=== PATIENT | female | born 1985 | race Caucasian/White ===

== ENCOUNTER → 2018-11-07 | Outpatient (CLI) | payer BC ==
[~2018-11-07] MED LIST: CEPH500C PO; METO-354 PO; OMEP-10 PO; OXYC-12 PO; PREN1TAB39 PO
--- NOTE | 2018-11-07 09:52 | Diagnostic Imaging Report ---
INDICATION: Fall with left elbow pain AP, oblique, and lateral views of the left elbow are obtained. There is elevation of the posterior fat pad compatible with a hemarthrosis. A definite fracture is not visualized but given the hemarthrosis, the possibility of an occult fracture cannot be excluded. IMPRESSION: Elevation of posterior fat pad compatible with hemarthrosis or joint effusion. No definite fracture seen but the presence of the elevated posterior fat pad raises the possibility of an occult fracture. Would recommend followup imaging in 7-10 days. Dictated by: Dictated on workstation # [id number]
== END ==
LOC: RAD 08:47
PROVIDERS: ATTEND Nurse Practitioner Family
DX: M25.822 Other specified joint disorders, left elbow (principal); M25.522 Pain in left elbow; W19.XXXA Unspecified fall, initial encounter
CPT/HCPCS: 73080

== ENCOUNTER 2018-11-18 04:25 | Emergency (ER) | payer BC ==
[~2018-11-18] VITALS: Ht 162.6 cm; Wt 60.8 kg
[2018-11-18] MEDS ORDERED: FAMOTIDINE 20 MG (PEPCID) TABLET PO STA (04:38)
[2018-11-18] MEDS ORDERED: ANTACID SUSP 30 ML UDC (MYLANTA) PO ONE (04:45)
[2018-11-18] MEDS ORDERED: LIDOCAINE 2% VISCOUS 15 ML UDC PO ONE (04:45)
--- NOTE | 2018-11-18 04:45 | ED Abdominal Pain ---
General Chief Complaint: Abdominal/GI Problems Stated Complaint: ABD PAIN Source of Information: Patient Exam Limitations: No Limitations (ROBBIE ECHOLS) History of Present Illness Date Seen by Provider: Nov 18, 2018 Time Seen by Provider: 04:30 Initial Comments Patient presents to ER by private conveyance with chief complaint that about 3: 00 this morning she was woken with some epigastric pain slowly radiated down towards her umbilicus. She's had no fevers chills she's had some semi-nausea with no vomiting. Had a bowel movement yesterday was normal formed. No diarrhea. No dysuria. She says she's having some pain and achiness in her back as well. She has no history of trauma, abdominal surgeries or medical history. No history of kidney stones. She denies a history of GERD or peptic ulcers. She has not taken any pain medicines, antipyretics or antacids. (ROBBIE ECHOLS) Allergies and Home Medications Allergies Uncoded Allergies: NKDA (Allergy, Unknown, 11/18/18) Home Medications Cephalexin Monohydrate 500 Mg Capsule, 1 EACH PO TID, (Reported) Metoclopramide Hcl 10 Mg Tab, 1 EACH PO QID, (Reported) Omeprazole 20 Mg Capsule.dr, 20 MG PO DAILY, (Reported) Omeprazole 20 Mg Capsule.dr, 20 MG PO DAILY Prescribed by: DENNIS COLIN on 11/18/18 0803 Oxycodone Hcl/Acetaminophen 1 Each Tablet, 1-2 EACH PO Q4-6HR PRN, (Reported) Vits W-Ca,Fe,Fa(<1MG) 1 Each Tablet, 1 EACH PO DAILY, (Reported) Patient Home Medication List Home Medication List Reviewed: Yes (ROBBIE ECHOLS) Review of Systems Review of Systems Constitutional: No chills, No diaphoresis, No fever, No malaise EENTM: No Blurred Vision, No Double Vision Respiratory: Denies Cough, Denies Shortness of Air Cardiovascular: Denies Chest Pain, Denies Edema, Denies Lightheadedness Gastrointestinal: See HPI; Denies Abdomen Distended; Abdominal Pain; Denies Constipated, Denies Diarrhea; Nausea; Denies Poor Appetite, Denies Poor Fluid Intake, Denies Vomiting Genitourinary: Denies Burning, Denies Discharge Musculoskeletal: see HPI, back pain; No joint pain Psychiatric/Neurological: Denies Anxiety, Denies Depressed (ROBBIE ECHOLS) Past [facility]ww[facility]-Lqhnm[facility] Hx Patient Social History Recent Foreign Travel: No Contact w/Someone Who Travel: No (ROBBIE ECHOLS) Past Medical History Reproductive Disorders: No (ROBBIE ECHOLS) Physical Exam Vital Signs Vital Signs - First Documented 11/18/18 04:36 Temp 97.0 Pulse 57 Resp 20 B/P (MAP) 105/60 (75) Pulse Ox 100 O2 Delivery Room Air (DENNIS NOEL MD) Vital Signs Capillary Refill : (ROBBIE ECHOLS) Height/Weight/BMI Height: '" Weight: lbs. oz. kg; BMI Method: General Appearance: WD/WN, no apparent distress HEENT: PERRL/EOMI, normal ENT inspection, pharynx normal Neck: non-tender, full range of motion, supple, normal inspection Respiratory: lungs clear, normal breath sounds, no respiratory distress, no accessory muscle use Cardiovascular: normal peripheral pulses, regular rate, rhythm Peripheral Pulses: 2+ Radial Pulses (R), 2+ Radial Pulses (L) Gastrointestinal: normal bowel sounds (active), non tender, soft, no organomegaly, other (negative for Harding's sign, McBurney's point tenderness, Rovsing sign or psoas signs or any other mesenteric signs.) Extremities: normal range of motion, normal capillary refill Neurologic/Psychiatric: alert, normal mood/affect, oriented x 3 Skin: normal color, warm/dry (ROBBIE ECHOLS) Progress/Results/Core Measures Results/Orders Lab Results Laboratory Tests Test 11/18/18 04:48 11/18/18 05:07 Range/Units Urine Color YELLOW Urine Clarity CLEAR Urine pH 8 5-9 Urine Specific [place] 1.010 L 1.016-1.022 Urine Protein NEGATIVE NEGATIVE Urine Glucose (UA) NEGATIVE NEGATIVE Urine Ketones NEGATIVE NEGATIVE Urine Nitrite NEGATIVE NEGATIVE Urine Bilirubin NEGATIVE NEGATIVE Urine Urobilinogen 1 NORMAL MG/DL Urine Leukocyte Esterase 1+ H NEGATIVE Urine RBC (Auto) NEGATIVE NEGATIVE Urine RBC NONE /HPF Urine WBC RARE /HPF Urine Squamous Epithelial Cells 10-25 H /HPF Urine Crystals NONE /LPF Urine Bacteria TRACE /HPF Urine Casts NONE /LPF Urine Mucus SMALL H /LPF Urine Culture Indicated NO White Blood Count 8.0 4.3-11.0 10^3/uL Red Blood Count 4.09 L 4.35-5.85 10^6/uL Hemoglobin 12.7 11.5-16.0 G/DL Hematocrit 38 35-52 % Mean Corpuscular Volume 93 80-99 FL Mean Corpuscular Hemoglobin 31 25-34 PG Mean Corpuscular Hemoglobin Concent 33 32-36 G/DL Red Cell Distribution Width 12.4 10.0-14.5 % Platelet Count 140 130-400 10^3/uL Mean Platelet Volume 10.3 7.4-10.4 FL Neutrophils (%) (Auto) 89 H 42-75 % Lymphocytes (%) (Auto) 5 L 12-44 % Monocytes (%) (Auto) 6 0-12 % Eosinophils (%) (Auto) 0 0-10 % Basophils (%) (Auto) 0 0-10 % Neutrophils # (Auto) 7.1 1.8-7.8 X 10^3 Lymphocytes # (Auto) 0.4 L 1.0-4.0 X 10^3 Monocytes # (Auto) 0.5 0.0-1.0 X 10^3 Eosinophils # (Auto) 0.0 0.0-0.3 10^3/uL Basophils # (Auto) 0.0 0.0-0.1 10^3/uL Sodium Level 140 135-145 MMOL/L Potassium Level 3.9 3.6-5.0 MMOL/L Chloride Level 106 98-107 MMOL/L Carbon Dioxide Level 26 21-32 MMOL/L Anion Gap 8 5-14 MMOL/L Blood Urea Nitrogen 16 7-18 MG/DL Creatinine 0.86 0.60-1.30 MG/DL Estimat Glomerular Filtration Rate > 60 BUN/Creatinine Ratio 19 Glucose Level 111 H 70-105 MG/DL Calcium Level 9.4 8.5-10.1 MG/DL Corrected Calcium 9.2 8.5-10.1 MG/DL Total Bilirubin 1.1 H 0.1-1.0 MG/DL Aspartate Amino Transf (AST/SGOT) 83 H 5-34 U/L Alanine Aminotransferase (ALT/SGPT) 55 0-55 U/L Alkaline Phosphatase 48 40-136 U/L C-Reactive Protein High Sensitivity 0.03 0.00-0.50 MG/DL Total Protein 6.8 6.4-8.2 GM/DL Albumin 4.3 3.2-4.5 GM/DL Lipase 28 8-78 U/L (DENNIS NOEL MD) Medications Given in ED Current Medications Medications Dose Ordered Sig/Mike Route Start Time Stop Time Status Last Admin Dose Admin Al Hydrox/Mg Hydrox/Simethicone 30 ml ONCE ONCE PO 11/18/18 04:45 11/18/18 04:46 DC 11/18/18 04:48 30 ML Famotidine 20 mg ONCE ONCE IVP 11/18/18 06:00 11/18/18 06:01 DC 11/18/18 06:10 20 MG Fentanyl Citrate 50 mcg ONCE ONCE IVP 11/18/18 06:00 11/18/18 06:01 DC 11/18/18 05:58 50 MCG Iohexol 100 ml ONCE ONCE IV 11/18/18 06:45 11/18/18 07:21 DC 11/18/18 06:39 100 ML Ketorolac Tromethamine 30 mg ONCE ONCE IM 11/18/18 05:15 11/18/18 05:16 DC 11/18/18 05:17 30 MG Lidocaine HCl 15 ml ONCE ONCE PO 11/18/18 04:45 11/18/18 04:46 DC 11/18/18 04:48 15 ML Ondansetron HCl 4 mg ONCE ONCE PO 11/18/18 05:00 11/18/18 05:01 DC 11/18/18 05:00 4 MG Sodium Chloride 80 ml ONCE ONCE IV 11/18/18 06:45 11/18/18 07:21 DC 11/18/18 06:40 80 ML (DENNIS NOEL MD) Vital Signs/I&O 11/18/18 04:36 Temp 97.0 Pulse 57 Resp 20 B/P (MAP) 105/60 (75) Pulse Ox 100 O2 Delivery Room Air (DENNIS NOEL MD) Progress Progress Note #1: Time: 04:43 Progress Note Nonacute, nonsurgical belly and well-appearing adult. Possible gastroenteritis, gastritis or colitis. We have asked her for a urinalysis however she says she went to the bathroom in the waiting room prior to coming in. We'll trial a GI cocktail. Aseptic vital signs with a heart rate in the 60s, oxygen saturation on 100% on room air and a blood pressure of 105/60. A nontender belly and no mesenteric signs with aseptic vital signs. Consider offering to check basic labs to include a lipase. Offered Toradol and Zofran. Progress Note #2: Time: 05:50 Progress Note We gave the patient a GI cocktail she said it started to help and then she gets very nauseated and vomited it up. We will establish an IV site gave her 30 mg of Toradol which she said was helping her pain she is even starting to fall asleep. Her labs were reviewed with her and they are very unremarkable. However she said her pain started coming back with a vengeance and rated it as an 8 or 9 out of 10 in her epigastric region radiating towards her back. She still does not have a Harding sign or any costovertebral angle tenderness to percussion. A CT with contrast has been ordered. It may not show us a kidney stone but this does not seem to be her symptomology. Lipase is negative. We will see what the results of the CT scan are. 50 g of fentanyl have been ordered IV. (ROBBIE ECHOLS) Progress Note : Time: 07:59 Progress Note Care of this patient was assumed from Dr. Echols. CT scan was reviewed and did not reveal an etiology for her pain. Patient was reexamined and found to have a minimally tender left upper quadrant. Exam was otherwise unremarkable. (DENNIS NOEL MD) Diagnostic Imaging Diagonstic Imaging: CT (with contrast) Plain Films/CT/US/NM/MRI: abdomen, pelvis Reviewed: Reviewed by Me (ROBBIE ECHOLS) Comments CT abdomen and pelvis viewed by me and report reviewed. See report below: NAME: MOHAN MARCUM [facility] REC#: [id number] PT STATUS: REG ER : 1985 PHYSICIAN: ROBBIE ECHOLS MD ADMIT DATE: 11/18/18/ER Draft Date of Exam:11/18/18 CT ABDOMEN/PELVIS W PROCEDURE: CT abdomen and pelvis with contrast. TECHNIQUE: Multiple contiguous axial images were obtained through the abdomen and pelvis after administration of intravenous contrast. INDICATION: Pain. No priors. FINDINGS: The lung bases are clear. There is some periportal edema in the liver with patency of the portal veins and no bile duct dilatation. This is a nonspecific finding and can be seen idiopathically as well as in the setting of hepatitis; correlate with relevant studies. The pancreas appeared unremarkable. The adrenals and spleen negative. The kidneys are unobstructed. There are no findings of appendicitis or diverticulitis. There is an IUD device within the uterus eleazar-flexed. Urinary bladder and adnexa unremarkable. There is no ascites, abscess, hematoma or other fluid collection. There is no pneumatosis or free gas. IMPRESSION: Intrahepatic but nonspecific periportal edema, the abdominal pelvic CT was otherwise unremarkable and showed no obstructive features. Focal inflammatory process, fluid collection, perforation or other significant findings. Dictated on workstation # [id number] Dict: 11/18/18 0717 Trans: 11/18/18 0730 CHI [id number] Interpreted by: DEANDRE TORIBIO (DENNIS NOEL MD) Transfer of Care Time: 06:01 Care transferred to: Dr. Colin (ROBBIE ECHOLS) Departure Impression Primary Impression: Upper abdominal pain Additional Impression: Nausea and vomiting Qualified Codes: R11.2 - Nausea with vomiting, unspecified Disposition: HOME, SELF-CARE Condition: Improved Departure-Patient Inst. Decision time for Depature: 08:00 (DENNIS NOEL MD) Referrals: ANNA CULVER MD (PCP/Family) Primary Care Physician Patient Instructions: Acute Abdomen (Belly Pain), Adult (DC) Add. Discharge Instructions: Start with a clear liquid diet and gradually advance your diet with small quantities of bland food as tolerated. Use an antacid medication such as omeprazole or Pepcid (famotidine) daily for at least the next 2 weeks. Follow-up with your primary care provider within the next 1-2 weeks. If you're still having symptoms, further evaluation may be warranted with endoscopy and/ or ultrasound. Return to emergency room if you are having significant worsening of symptoms. Avoid the following: Eating large meals, eating close to bedtime, caffeine, carbonation, chocolate, citrus fruits and juices, tomato products, alcohol, mints, fatty or greasy foods, spicy foods, NSAID medications such as ibuprofen or naproxen, or anything else you know irritates your stomach. All discharge instructions reviewed with patient and/or family. Voiced understanding. Scripts Omeprazole (Omeprazole) 20 Mg Capsule. 20 MG PO DAILY, #30 CAP Prov: DENNIS NOEL MD 11/18/18 ROBBIE ECHOLS Nov 18, 2018 04:45 DENNIS NOEL MD Nov 18, 2018 07:43
[2018-11-18] MEDS ORDERED: ONDANSETRON 4 MG (ZOFRAN) ORAL DISSOLVE TAB ONE (04:49)
[2018-11-18 04:56] LABS: BILIRUBIN,URINE NEGATIVE (NEGATIVE); CLARITY,URINE CLEAR; COLOR,URINE YELLOW; GLUCOSE, URINE (UA) NEGATIVE (NEGATIVE); KETONES,URINE NEGATIVE (NEGATIVE); LEUKOCYTE ESTERASE ,URINE 1+ (NEGATIVE); NITRITE,URINE NEGATIVE (NEGATIVE); PH,URINE 8 (5-9); PROTEIN,URINE NEGATIVE (NEGATIVE); UROBILINOGEN,URINE 1 MG/DL (NORMAL)
[2018-11-18] MEDS ORDERED: ONDANSETRON 4 MG (ZOFRAN) ORAL DISSOLVE TAB PO ONE (05:00)
[2018-11-18 05:04] LABS: BACTERIA,URINE TRACE /HPF; WBC,URINE RARE /HPF
[2018-11-18 05:09] LABS: BASOPHILS % (AUTO) 0 % (0-10); EOSINOPHILS % (AUTO) 0 % (0-10); HEMATOCRIT 38 % (35-52); HEMOGLOBIN 12.7 G/DL (11.5-16.0); LYMPHOCYTES # (AUTO) 0.4 X 10^3 (1.0-4.0); LYMPHOCYTES % (AUTO) 5 % (12-44); MEAN CORPUSCULAR HEMOGLOBIN 31 PG (25-34); MEAN CORPUSCULAR HGB CONC 33 G/DL (32-36); MEAN CORPUSCULAR VOLUME 93 FL (80-99); MEAN PLATELET VOLUME 10.3 FL (7.4-10.4); MONOCYTES # (AUTO) 0.5 X 10^3 (0.0-1.0); MONOCYTES % (AUTO) 6 % (0-12); NEUTROPHILS # (AUTO) 7.1 X 10^3 (1.8-7.8); NEUTROPHILS % (AUTO) 89 % (42-75); PLATELET COUNT 140 10^3/uL (130-400); RED CELL DISTRIBUTION WIDTH 12.4 % (10.0-14.5)
[2018-11-18] MEDS ORDERED: KETOROLAC 30 MG/ML VIAL IM ONE (05:15)
[2018-11-18 05:45] LABS: ALANINE AMINOTRANSFERASE 55 U/L (0-55); ALBUMIN 4.3 GM/DL (3.2-4.5); ALKALINE PHOSPHATASE 48 U/L (40-136); BILIRUBIN,TOTAL 1.1 MG/DL (0.1-1.0); BUN/CREATININE RATIO 19; CALCIUM 9.4 MG/DL (8.5-10.1); CARBON DIOXIDE 26 MMOL/L (21-32); CHLORIDE 106 MMOL/L (98-107); CREATININE SERUM 0.86 MG/DL (0.60-1.30); GFR ESTIMATED > 60; GLUCOSE 111 MG/DL (70-105); LIPASE 28 U/L (8-78); POTASSIUM 3.9 MMOL/L (3.6-5.0); SODIUM 140 MMOL/L (135-145); TOTAL PROTEIN 6.8 GM/DL (6.4-8.2)
[2018-11-18] MEDS ORDERED: FAMOTIDINE 20MG/2ML IV (PEPCID) IVP ONE (06:00)
[2018-11-18] MEDS ORDERED: fentaNYL INJECTION 100 MCG/2 ML AMP IVP ONE (06:00)
[2018-11-18] MEDS ORDERED: IOHEXOL 350 MG/ML 100 ML (OMNIPAQUE 350) VIAL IV ONE (06:45)
[2018-11-18] MEDS ORDERED: NS 100 ML (IVPB) BAG IV ONE (06:45)
--- NOTE | 2018-11-18 07:31 | Diagnostic Imaging Report ---
PROCEDURE: CT abdomen and pelvis with contrast. TECHNIQUE: Multiple contiguous axial images were obtained through the abdomen and pelvis after administration of intravenous contrast. INDICATION: Pain. No priors. FINDINGS: The lung bases are clear. There is some periportal edema in the liver with patency of the portal veins and no bile duct dilatation. This is a nonspecific finding and can be seen idiopathically as well as in the setting of hepatitis; correlate with relevant studies. The pancreas appeared unremarkable. The adrenals and spleen negative. The kidneys are unobstructed. There are no findings of appendicitis or diverticulitis. There is an IUD device within the uterus eleazar-flexed. Urinary bladder and adnexa unremarkable. There is no ascites, abscess, hematoma or other fluid collection. There is no pneumatosis or free gas. IMPRESSION: Intrahepatic but nonspecific periportal edema, the abdominal pelvic CT was otherwise unremarkable and showed no obstructive features. Focal inflammatory process, fluid collection, perforation or other significant findings. Dictated by: Dictated on workstation # [id number]
[2018-11-18] MEDS ORDERED: OMEP20CA12 PO (08:03)
[2018-11-18 08:09] VITALS: BP 108/58
== END 2018-11-18 08:09 | disposition home or self-care (01) ==
LOC: EDUNIT# 04:25 → ER 04:28
DX: R10.13 Epigastric pain (principal); R11.2 Nausea with vomiting, unspecified
CPT/HCPCS: 36415; 74177; 80053; 81000; 83690; 84703; 85025; 86141